=== PATIENT | male | born 1955 | race American Indian/Alaskan Native ===

== ENCOUNTER 2018-11-20 15:07 | Emergency (ER) | payer SELFPAY ==
[2018-11-20] MEDS ORDERED: NACL 0.9% 1000 ML 1,000 ML IV ONE (16:20)
--- NOTE | 2018-11-20 16:24 | Emergency Department Report ---
ED Altered Mental Status HPI - General Chief Complaint: Medical Clearance Stated Complaint: UNRESPONSIVE/OVERHEATED Time Seen by Provider: 11/20/18 15:38 Source: EMS Mode of arrival: Stretcher Limitations: No Limitations - History of Present Illness Initial Comments: Mr. Fuchs was found outside a [employer] restaurant next to [employer] sitting for the past 2 days. He has been outside for the past 2 days. Considering intense heat and sun exposure, bystander was concern for heat exhaustion. EMS was contacted. After receiving IV fluid EMS he appeared to be more alert. Mr. Perkins denies any concerns. Complaint: altered mental status, decreased responsiveness -: unknown Severity: mild Consistency of Symptoms: waxing and waning Associated Symptoms: denies other symptoms ED Review of Systems ROS: Stated complaint: UNRESPONSIVE/OVERHEATED Other details as noted in HPI Comment: All other systems reviewed and negative Respiratory: denies: cough Cardiovascular: denies: palpitations ED Past Medical Hx - Past Medical History Previous Medical History?: Yes Hx Hypertension: Yes - Surgical History Past Surgical History?: Yes Hx Appendectomy: Yes - Social History Smoking Status: Heavy Tobacco Smoker Substance Use Type: Alcohol ED Physical Exam - General Limitations: No Limitations General appearance: alert, in no apparent distress, other (disheveled dirty clothing) - Head Head exam: Present: atraumatic, normocephalic - Eye Eye exam: Present: other (left eye normal appearance, 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 Absent: respiratory distress, wheezes, rales, rhonchi - Cardiovascular Cardiovascular Exam: Present: regular rate, normal rhythm, normal heart sounds. Absent: systolic murmur, diastolic murmur, rubs, gallop - GI/Abdominal GI/Abdominal exam: Present: soft, normal bowel sounds. Absent: distended, tenderness, guarding, rebound - Rectal Rectal exam: Present: deferred - Extremities Exam Extremities exam: Present: normal inspection - Back Exam Back exam: Present: normal inspection - Neurological Exam Neurological exam: Present: alert, oriented X3 - Psychiatric Psychiatric exam: Present: normal affect, normal mood - Skin Skin exam: Present: warm, dry, intact, normal color. Absent: rash ED Course Vital Signs 05/11/20/18 11/20/18 15:16 15:22 15:30 Temperature 98.9 F Pulse Rate 92 H Respiratory 16 Rate Blood Pressure 112/83 112/83 O2 Sat by Pulse 98 95 98 Oximetry 11/20/18 11/20/18 11/20/18 15:46 16:00 16:16 Temperature Pulse Rate Respiratory Rate Blood Pressure 129/88 129/88 O2 Sat by Pulse 95 91 84 Oximetry 11/20/18 11/20/18 11/20/18 16:30 16:46 17:00 Temperature Pulse Rate Respiratory Rate Blood Pressure 136/87 136/87 144/81 O2 Sat by Pulse 93 96 96 Oximetry 11/20/18 11/20/18 11/20/18 17:16 17:30 17:46 Temperature Pulse Rate Respiratory Rate Blood Pressure 144/81 122/86 O2 Sat by Pulse 96 95 97 Oximetry - Lab Data Result diagrams: 11/20/18 16:27 11/20/18 16:27 Lab Results 11/20/18 11/20/18 11/20/18 Range/Units 16:27 16:27 16:27 WBC 5.8 (4.5-11.0) K/mm3 RBC 3.72 (3.65-5.03) M/mm3 Hgb 12.0 (11.8-15.2) gm/dl Hct 36.3 (35.5-45.6) % MCV 98 H (84-94) fl MCH 32 (28-32) pg MCHC 33 (32-34) % RDW 12.9 L (13.2-15.2) % Plt Count 216 (140-440) K/mm3 Lymph % (Auto) 21.3 (13.4-35.0) % [place] % (Auto) 14.1 H (0.0-7.3) % Eos % (Auto) 0.6 (0.0-4.3) % Baso % (Auto) 0.9 (0.0-1.8) % Lymph # 1.2 (1.2-5.4) K/mm3 [place] # 0.8 (0.0-0.8) K/mm3 Eos # 0.0 (0.0-0.4) K/mm3 Baso # 0.1 (0.0-0.1) K/mm3 Seg Neutrophils % 63.1 (40.0-70.0) % Seg Neutrophils # 3.7 (1.8-7.7) K/mm3 Sodium 142 (137-145) mmol/L Potassium 3.5 L (3.6-5.0) mmol/L Chloride 104.4 (98-107) mmol/L Carbon Dioxide 27 (22-30) mmol/L Anion Gap 14 mmol/L BUN 8 L (9-20) mg/dL Creatinine 1.1 (0.8-1.5) mg/dL Estimated GFR > 60 ml/min BUN/Creatinine Ratio 7 % Glucose 89 (75-100) mg/dL Calcium 8.5 (8.4-10.2) mg/dL Total Creatine Kinase 552 H (55-170) units/L Plasma/Serum Alcohol < 0.01 (0-0.07) % - Medical Decision Making Mr. Perkins is appropriately awake and aware. He received IV fluid in the ED. No symptoms of rhabdomyolysis. Discharged home. He provided nursing staff number for his brother. I do suspect that he is homeless. Critical care attestation.: If time is entered above; I have spent that time in minutes in the direct care of this critically ill patient, excluding procedure time. ED Disposition Clinical Impression: Heat exposure Disposition: DC-01 TO HOME OR SELFCARE Is pt being admited?: No Does the pt Need Aspirin: No Condition: Stable Instructions: Dehydration (ED) Referrals: PATTI RODAS MD [Primary Care Provider] - 3-5 Days
[2018-11-20 17:19] LABS: Basophils # (Auto) 0.1 K/mm3 (0.0-0.1); Basophils % (Auto) 0.9 % (0.0-1.8); Eosinophils % (Auto) 0.6 % (0.0-4.3); Hematocrit 36.3 % (35.5-45.6); Lymphocytes # (Auto) 1.2 K/mm3 (1.2-5.4); Lymphocytes % (Auto) 21.3 % (13.4-35.0); Mean Corpuscular HGB Conc 33 % (32-34); Mean Corpuscular Volume 98 fl (84-94); Monocytes # (Auto) 0.8 K/mm3 (0.0-0.8); Monocytes % (Auto) 14.1 % (0.0-7.3); Platelet Count 216 K/mm3 (140-440); Red Blood Count 3.72 M/mm3 (3.65-5.03); Red Cell Distribution Width 12.9 % (13.2-15.2)
[2018-11-20 17:39] LABS: BUN/Creatinine Ratio 7; Blood Urea Nitrogen 8 mg/dL (9-20); Calcium 8.5 mg/dL (8.4-10.2); Hemolysis Index 1
[2018-11-20 22:43] VITALS: BP 114/96
== END 2018-11-20 22:42 | disposition home or self-care (01) ==
LOC: EDBD → ED 15:07
DX: T67.0XXA Heatstroke and sunstroke, initial encounter (principal); I10 Essential (primary) hypertension; F17.200 Nicotine dependence, unspecified, uncomplicated; Z90.49 Acquired absence of other specified parts of digestive tract; X58.XXXA Exposure to other specified factors, initial encounter; Y93.89 Activity, other specified; Y92.89 Other specified places as the place of occurrence of the external cause; Y99.8 Other external cause status
CPT/HCPCS: 36415; 80048; 82550; 85025; 99283; G0480; J7030; 80320